=== PATIENT | female | born 1975 | race Caucasian/White ===

== ENCOUNTER 2019-11-12 16:33 | Emergency (ER) | payer BC ==
[2019-11-12] MEDS ORDERED: Sodium Chloride 0.9% 10 ML Syringe FLUSH PRN (17:52)
--- NOTE | 2019-11-12 18:03 | EDM.PDOC ---
ED HPI GENERAL MEDICAL PROBLEM - General Chief Complaint: Chest Pain Stated Complaint: CHEST TIGHTNESS/LOW BP Time Seen by Provider: 11/12/19 18:00 - History of Present Illness INITIAL COMMENTS - FREE TEXT/NARRATIVE: 44-year-old female presents the emergency room with low blood pressure and occasional burning in her chest. The patient seems to have 2 ongoing issues her blood pressures been chronically low before she came here from [place], Her regular physician wanted to start her on Midodrine as her blood pressure would drop into the quite low range at times and at times cause symptoms. She usually has very low blood pressure the patient works out 6 times a week and is very fit also the patient's been getting a lot of burning sensation in the lower part of her midsternal area. When she is working out and doing strenuous activity she is not having problems with chest pain. 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 - Past Surgical History Female Surgical History: Reports: Cervical Conization Social & Family History - Tobacco Use Smoking Status *Q: Never Smoker - Caffeine Use Caffeine Use: Reports: Coffee - Recreational Drug Use Recreational Drug Use: No ED ROS GENERAL - Review of Systems Review Of Systems: See Below Constitutional: Reports: No Symptoms Respiratory: Reports: No Symptoms Cardiovascular: Reports: No Symptoms Endocrine: Reports: No Symptoms GI/Abdominal: Reports: No Symptoms : Reports: No Symptoms, Other (History of frequent urinary tract infections) Musculoskeletal: Reports: No Symptoms Skin: Reports: No Symptoms Neurological: Reports: No Symptoms Psychiatric: Reports: Other (She is a little anxious at this time) Hematologic/Lymphatic: Reports: No Symptoms Immunologic: Reports: No Symptoms ED EXAM, GENERAL - Physical Exam Exam: See Below Exam Limited By: No Limitations General Appearance: Alert, No Apparent Distress, Anxious (Mildly anxious at this time) Head: Atraumatic, Normocephalic Neck: Normal Inspection, Supple, Non-Tender, Full Range of Motion Respiratory/Chest: No Respiratory Distress, Lungs Clear, Normal Breath Sounds Cardiovascular: Regular Rate, Rhythm, No Edema, No Murmur GI/Abdominal: Normal Bowel Sounds, Soft, Tender (Some mild epigastric discomfort ) Back Exam: Normal Inspection, CVA Tenderness (L), CVA Tenderness (R) Neurological: Alert, Oriented, Normal Cognition EKG INTERPRETATION EKG Date: 11/12/19 Rhythm: NSR [place]: Normal P-Wave: Present QRS: Normal ST-T: Normal QT: Normal Comparison: NA - No Prior EKG EKG Interpretation Comments: Artifact noted Course - Vital Signs Last Recorded V/S: Last Vital Signs Temp 36.7 C 11/12/19 16:45 Pulse 79 11/12/19 16:45 Resp 18 11/12/19 16:45 BP 102/70 11/12/19 16:45 Pulse Ox 100 11/12/19 16:45 Orthostatic Blood Pressure [ 93/73 Standing] Orthostatic Blood Pressure [ 100/78 Sitting] Orthostatic Blood Pressure [ 92/69 Supine] - Orders/Labs/Meds Orders: Active Orders 24 hr Category Date Time Status Peripheral IV Care [RC] . DIRECTED Care 11/12/19 17:52 Active Peripheral IV Insertion Adult [OM.PC] Routine Oth 11/12/19 17:52 Ordered Labs: Laboratory Tests 11/12/19 11/12/19 Range/Units 17:32 17:32 WBC 8.09 (3.98-10.04) K/mm3 RBC 4.26 (3.98-5.22) M/mm3 Hgb 12.4 (11.2-15.7) gm/dl Hct 39.3 (34.1-44.9) % MCV 92.3 (79.4-94.8) fl MCH 29.1 (25.6-32.2) pg MCHC 31.6 L (32.2-35.5) g/dl RDW Std Deviation 45.1 (36.4-46.3) fL Plt Count 233 (182-369) K/mm3 MPV 11.5 (9.4-12.3) fl Neut % (Auto) 55.2 (34.0-71.1) % Lymph % (Auto) 35.1 (19.3-51.7) % [place] % (Auto) 8.2 (4.7-12.5) % Eos % (Auto) 1.2 (0.7-5.8) Baso % (Auto) 0.2 (0.1-1.2) % Neut # (Auto) 4.46 (1.56-6.13) K/mm3 Lymph # (Auto) 2.84 (1.18-3.74) K/mm3 [place] # (Auto) 0.66 H (0.24-0.36) K/mm3 Eos # (Auto) 0.10 (0.04-0.36) K/mm3 Baso # (Auto) 0.02 (0.01-0.08) K/mm3 Sodium 137 (136-145) mEq/L Potassium 4.0 (3.5-5.1) mEq/L Chloride 102 (98-107) mEq/L Carbon Dioxide 27 (21-32) mEq/L Anion Gap 12.0 (5-15) BUN 14 (7-18) mg/dL Creatinine 0.7 (0.55-1.02) mg/dL Est Cr Clr Drug Dosing 77.91 mL/min Estimated GFR (MDRD) > 60 (>60) mL/min BUN/Creatinine Ratio 20.0 H (14-18) Glucose 89 (74-106) mg/dL Calcium 8.8 (8.5-10.1) mg/dL Total Bilirubin 0.4 (0.2-1.0) mg/dL AST 11 L (15-37) U/L ALT 21 (14-59) U/L Alkaline Phosphatase 61 (46-116) U/L Troponin I < 0.017 (0.00-0.056) ng/mL Total Protein 7.2 (6.4-8.2) g/dl Albumin 3.8 (3.4-5.0) g/dl Globulin 3.4 gm/dL Albumin/Globulin Ratio 1.1 (1-2) Meds: Medications Discontinued Medications Generic Name Dose Route Start Last Admin Trade Name Freq PRN Reason Stop Dose Admin Al Hydroxide/Mg Hydroxide 30 0 ml 11/12/19 18:18 11/12/19 18:31 ml/ Lidocaine HCl 15 ml PO 11/12/19 18:19 45 ml ONETIME ONE Administration Sodium Chloride 10 ml 11/12/19 17:52 11/12/19 18:00 Saline Flush FLUSH 10 ml ASDIRECTED PRN Administration Keep Vein Open - Re-Assessments/Exams Free Text/Narrative Re-Assessment/Exam: 11/12/19 20:07 Patient did not have any significant improvement with a GI cocktail. Her laboratory evaluation is unrevealing troponin negative. The patient is really want to start Midodrine at this point for hypotension she is getting back in [place] and can see her regular doctor perhaps at the end of this week I do not feel comfortable starting her on this medication and have explained that to her. For her symptoms that sound much like reflux I advised her to start taking famotidine 20 mg twice daily she will do this. She should use great caution driving. Departure - Departure Time of Disposition: 20:08 Disposition: Home, Self-Care 01 Clinical Impression: Hypotension, Reflux esophagitis Instructions: Esophagitis, Hypotension, [id number] Referrals: PCP,Not In Area [Primary Care Provider] - Forms: ED Department Discharge Additional Instructions: Return to the emergency room with any questions problems or worsening symptoms. 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 After the burning in your chest resolves decrease it to once daily. Follow-up with your regular doctor back in [place] to discuss getting started on the Midodrine. Caution when changing positions as this can trigger your lightheadedness. Avoid driving when you are having those symptoms. Sepsis Event Note - Evaluation Sepsis Screening Result: No Definite Risk - Focused Exam Date Exam was Performed: 11/13/19 Time Exam was Performed: 18:20 - My Orders Last 24 Hours: My Active Orders 11/12/19 17:52 Peripheral IV Care [RC] . DIRECTED Peripheral IV Insertion Adult [OM.PC] Routine - Assessment/Plan Last 24 Hours: My Active Orders 11/12/19 17:52 Peripheral IV Care [RC] . DIRECTED Peripheral IV Insertion Adult [OM.PC] Routine
[2019-11-12] MEDS ORDERED: Alum Hydrox/Mag Hydrox/Simeth 30 ML, Lidocaine 2% 15 ML PO ONE ×2 (18:18)
== END 2019-11-12 20:18 | disposition home or self-care (01) ==
LOC: JD.ED 16:33
DX: I95.9 Hypotension, unspecified (principal); K21.9 Gastro-esophageal reflux disease without esophagitis; Z91.040 Latex allergy status; Z91.048 Other nonmedicinal substance allergy status
CPT/HCPCS: 36415; 80053; 84484; 85025; 93005; 99285; A9270; 93010; 99283

== ENCOUNTER 2021-09-28 19:36 | Emergency (ER) | payer BC ==
--- NOTE | 2021-09-28 21:04 | EDM.PDOC ---
ED HPI GENERAL MEDICAL PROBLEM - General Chief Complaint: Respiratory Problem Stated Complaint: SOB Time Seen by Provider: 09/28/21 20:40 Source of Information: Reports: Patient, RN Notes Reviewed History Limitations: Reports: No Limitations - History of Present Illness INITIAL COMMENTS - FREE TEXT/NARRATIVE: Patient is a 46-year-old female who presents to the ER for the evaluation of her ongoing illness. States she was diagnosed with pneumonia, and placed on azithromycin. Last dose was today. States that she finished the medication however today she felt more short of breath, had some mild hemoptysis with coughing, and states that she was not able to really catch her breath with any sort of activity. States that she is a fairly healthy individual, and does exercise regularly. She did have a fever today as well as high as 102 F. States that she felt a little bit dizzy and lightheaded as well. Patient states she was tested for COVID-19 last week and it was negative. States that her symptoms today were worse than they were last week however. 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 ED EXAM, GENERAL - Physical Exam Exam: See Below Exam Limited By: No Limitations General Appearance: Alert, WD/WN, No Apparent Distress Respiratory/Chest: No Respiratory Distress, Lungs Clear, Normal Breath Sounds, No Accessory Muscle Use, Chest Non-Tender Cardiovascular: Normal Peripheral Pulses, Regular Rate, Rhythm, No Edema Peripheral Pulses: 2+: Radial (L), Radial (R) Extremities: Normal Inspection, Normal Capillary Refill Neurological: Alert, Oriented, Normal Cognition, No Motor/Sensory Deficits Psychiatric: Normal Affect, Normal Mood Skin Exam: Warm, Dry, Intact, Normal Color, No Rash Course - Vital Signs Last Recorded V/S: Last Vital Signs Temp 98 F 09/28/21 20:07 Pulse 68 09/28/21 20:07 Resp 16 09/28/21 20:07 BP 98/77 09/28/21 20:07 Pulse Ox 99 09/28/21 20:07 - Orders/Labs/Meds Orders: Active Orders 24 hr Category Date Time Status Chest 2V [CR] Stat Exams 09/28/21 20:13 Taken Labs: Laboratory Tests 09/28/21 09/28/21 Range/Units 21:10 21:10 WBC 7.28 (3.98-10.04) K/mm3 RBC 4.14 (3.98-5.22) M/mm3 Hgb 12.5 (11.2-15.7) gm/dl Hct 39.1 (34.1-44.9) % MCV 94.4 (79.4-94.8) fl MCH 30.2 (25.6-32.2) pg MCHC 32.0 L (32.2-35.5) g/dl RDW Std Deviation 42.8 (36.4-46.3) fL Plt Count 272 (182-369) K/mm3 MPV 10.3 (9.4-12.3) fl Neut % (Auto) 49.9 (34.0-71.1) % Lymph % (Auto) 39.4 (19.3-51.7) % [place] % (Auto) 8.7 (4.7-12.5) % Eos % (Auto) 1.6 (0.7-5.8) Baso % (Auto) 0.3 (0.1-1.2) % Neut # (Auto) 3.63 (1.56-6.13) K/mm3 Lymph # (Auto) 2.87 (1.18-3.74) K/mm3 [place] # (Auto) 0.63 H (0.24-0.36) K/mm3 Eos # (Auto) 0.12 (0.04-0.36) K/mm3 Baso # (Auto) 0.02 (0.01-0.08) K/mm3 Sodium 143 (136-145) mEq/L Potassium 4.0 (3.5-5.1) mEq/L Chloride 105 (98-107) mEq/L Carbon Dioxide 30 (21-32) mEq/L Anion Gap 12.0 (5-15) BUN 11 (7-18) mg/dL Creatinine 0.7 (0.55-1.02) mg/dL Est Cr Clr Drug Dosing 74.13 mL/min Estimated GFR (MDRD) > 60 (>60) mL/min BUN/Creatinine Ratio 15.7 (14-18) Glucose 89 (70-99) mg/dL Calcium 8.8 (8.5-10.1) mg/dL Total Bilirubin 0.3 (0.2-1.0) mg/dL AST 14 L (15-37) U/L ALT 21 (14-59) U/L Alkaline Phosphatase 60 (46-116) U/L C-Reactive Protein <0.2 (<1.0) mg/dL Total Protein 6.6 (6.4-8.2) g/dl Albumin 3.6 (3.4-5.0) g/dl Globulin 3.0 gm/dL Albumin/Globulin Ratio 1.2 (1-2) - Re-Assessments/Exams Free Text/Narrative Re-Assessment/Exam: 09/28/21 21:04 Patient presents to the ER for evaluation of her ongoing illness. Chest x-ray was obtained at the time of triage demonstrates no obvious sign of acute focal infiltrates. We will go ahead and recheck for COVID-19 and flu and get some basic labs. 09/28/21 22:04 Labs are unremarkable, Covid screen was missed initially at 2100, I did asked the patient if she would like us to repeat this at this time as it can take a little extra time for this to result and she declined. With labs being as de cent as they are, its likely this is just another viral illness that is causing issues. I will have her go home and do symptomatic management with some Tylenol and ibuprofen have her monitor her symptoms and return to care if not much better. Patient verbalized understanding. Departure - Departure Time of Disposition: 22:05 Disposition: Home, Self-Care 01 Condition: Good Clinical Impression: Viral upper respiratory tract infection with cough - Discharge Information *PRESCRIPTION DRUG MONITORING PROGRAM REVIEWED*: No *COPY OF PRESCRIPTION DRUG MONITORING REPORT IN PATIENT ANA LUISA: No Instructions: Viral Respiratory Infection, [id number] Referrals: PCP,None [Primary Care Provider] - Forms: ED Department Discharge Additional Instructions: You have been evaluated in the ED today for your shortness of breath. This is likely a viral illness in etiology. Your chest x-ray showed no obvious sign of worsening pneumonia. Labs were also unremarkable for any worsening bacterial type disease. Please increase your fluid intake. Get plenty of rest as well. You should feel better in a few days. As with any illness, please try to limit your exposure to others to help mitigate the spread of germs. Please also remember to wash your hands after you cough/sneeze. Please try to limit touching your face, and then touching other surfaces. Recommend that you take some [id number] nasal decongestants, cough/cold remedies to combat this. You may take 500mg Tylenol (acetaminophen) or 600mg Advil/Motrin (ibuprofen) every 6 hours as needed for further pain/fever relief. Do not exceed 4000 mg Tylenol or 3200 mg ibuprofen in a 24-hour time span. If you have high blood pressure, medications like Coricidin would be adequate to use. If your symptoms are not better in one week's time recommend that you follow up in a clinic or your primary care provider. Our [facility] clinic number is [phone], the [place] clinic is [phone]. Any family practice provider would be able to provide you with the services. Please return to the ED if your symptoms change or worsen. Sepsis Event Note (ED) - Evaluation Sepsis Screening Result: No Definite Risk - Focused Exam Vital Signs: Vital Signs Temp Pulse Resp BP Pulse Ox 09/28/21 20:07 98 F 68 16 98/77 99 - My Orders Last 24 Hours: My Active Orders 09/28/21 20:13 Chest 2V [CR] Stat - Assessment/Plan Last 24 Hours: My Active Orders 09/28/21 20:13 Chest 2V [CR] Stat
--- NOTE | 2021-09-29 07:22 | CR ---
Chest: PA and lateral views of the chest were obtained. Comparison: No prior chest imaging is available. Minimal scoliosis is noted within the spine. Heart size and mediastinum are within normal limits. Lungs are clear with no acute parenchymal change. Impression: 1. Nothing acute is seen on 2-view chest x-ray. Diagnostic code #2
== END 2021-09-28 22:11 | disposition home or self-care (01) ==
LOC: JD.ED 19:36
DX: J06.9 Acute upper respiratory infection, unspecified (principal); Z91.048 Other nonmedicinal substance allergy status; Z91.040 Latex allergy status
CPT/HCPCS: 36415; 71046; 71046-26; 80053; 85025; 86140; 99283-25

== ENCOUNTER 2022-08-03 07:28 | Emergency (ER) | payer BC ==
[2022-08-03] MEDS ORDERED: Sodium Chloride 0.9% 10 ML Syringe FLUSH PRN (08:40)
[2022-08-03] MEDS ORDERED: Acetaminophen 325 MG Tab PO ONE (08:41)
[2022-08-03] MEDS ORDERED: Sodium Chloride 0.9% 1,000 ML IV SCH (08:45)
[2022-08-03 09:55] LABS: ESTIMATED GFR 108 mL/min (>60)
[2022-08-03] MEDS ORDERED: Midodrine 5 MG Tab PO ONE (11:08)
== END 2022-08-03 11:38 | disposition home or self-care (01) ==
LOC: JD.ED 07:28
DX: I95.9 Hypotension, unspecified (principal); R07.89 Other chest pain; Z91.048 Other nonmedicinal substance allergy status; Z91.040 Latex allergy status; Z79.899 Other long term (current) drug therapy
CPT/HCPCS: 36415; 71045; 80053; 83735; 84484; 85025; 93005; 96360; 99285; A9270; J3490; J7030

== ENCOUNTER 2024-07-14 10:30 | Emergency (ER) | payer SELFPAY ==
[2024-07-14] MEDS: Sodium Chloride 0.9% 1,000 ML IV ONE (11:25)
[2024-07-14 11:36] LABS: APPEARANCE,URINE SLT CLOUDY (Clear); BILIRUBIN,URINE 1+ (Negative); COLOR,URINE ORANGE (Yellow); GLUCOSE,URINE TRACE (Negative); KETONES,URINE TRACE (Negative); LEUKOCYTE ESTERASE,URINE 3+ (Negative); NITRITE,URINE POSITIVE (Negative); OCCULT BLOOD,URINE 2+ (Negative); PH,URINE 5.5 (5.0-8.0); PROTEIN,URINE 2+ (Negative)
[2024-07-14 11:46] LABS: BASOPHILS PERCENT AUTO 0.8 % (0.0-1.0); EOSINOPHILS ABSOLUTE AUTO 0.2 K/mm3 (0.0-0.4); EOSINOPHILS PERCENT AUTO 3.1 % (0.0-6.0); HEMATOCRIT 35.9 % (37.0-47.0); HEMOGLOBIN 11.3 gm/dl (12.0-16.0); IMMATURE GRAN ABSOLUTE AUTO 0.01 K/mm3 (0.00-0.05); IMMATURE GRAN PERCENT AUTO 0.2 % (0.0-0.4); LYMPHOCYTES ABSOLUTE AUTO 2.1 K/mm3 (1.0-4.8); LYMPHOCYTES PERCENT AUTO 39.3 % (24.0-44.0); MEAN CORPUSCULAR HEMOGLOBIN 30.5 pg (28.0-32.0); MEAN CORPUSCULAR HGB CONC 31.5 g/dl (32.0-36.0); MEAN PLATELET VOLUME 10.5 fl (9.4-12.3); MONOCYTES ABSOLUTE AUTO 0.5 K/mm3 (0.0-0.8); MONOCYTES PERCENT AUTO 9.6 % (0.0-8.0); NEUTROPHILS ABSOLUTE AUTO 2.5 K/mm3 (1.8-7.7); NRBC ABSOLUTE 0.05 (0.00-0.02); PLATELET COUNT,PLT 245 K/mm3 (150-400); WHITE BLOOD CELL COUNT,WBC 5.21 K/mm3 (3.9-11.3)
[2024-07-14 11:53] LABS: BACTERIA,URINE MODERATE /hpf (FEW); MUCUS,URINE FEW /hpf (FEW); WBC,URINE 40-50 /hpf (0-5)
[2024-07-14] MEDS: Iopamidol 612 MG/ML 100 ML Bottle IVPUSH ONE (11:56)
[2024-07-14 12:07] LABS: A/G RATIO 1.1 (1-2); ALANINE AMINOTRANSFERASE,ALT 16 U/L (14-59); ALBUMIN 3.5 g/dl (3.4-5.0); ALKALINE PHOSPHATASE 58 U/L (46-116); ANION GAP 10.2 (5-15); ASPARTATE AMNIOTRANSFERASE,AST 11 U/L (15-37); BILIRUBIN TOTAL 0.6 mg/dL (0.2-1.0); BLOOD UREA NITROGEN,BUN 15 mg/dL (7-18); C-REACTIVE PROTEIN <0.05 mg/dL (<0.30); CALCIUM 8.5 mg/dL (8.5-10.1); CARBON DIOXIDE,CO2 27 mEq/L (21-32); CHLORIDE,CL 106 mEq/L (98-107); EST CRCL DRUG DOSING (CG) 49.42 mL/min; ESTIMATED GFR 69 mL/min (>60); GLUCOSE RANDOM 89 mg/dL (70-99); POTASSIUM,K 4.2 mEq/L (3.5-5.1); PROTEIN TOTAL,TP 6.8 g/dl (6.4-8.2); SODIUM,NA 139 mEq/L (136-145)
== END 2024-07-14 13:20 | disposition home or self-care (01) ==
LOC: JD.ED 10:30
DX: N30.01 Acute cystitis with hematuria (principal); Z79.899 Other long term (current) drug therapy; Z91.040 Latex allergy status; Z91.048 Other nonmedicinal substance allergy status
CPT/HCPCS: 36415; 74177; 80053; 81001; 81025; 85025; 86140; 87086; 96360; 96361; 99284; J7030; Q9967